=== PATIENT | female | born 1945 | race Two or more races ===

== ENCOUNTER → 2016-11-23 | Outpatient (CLI) | payer OTHER | LOC: FIMAGING 13:45 | PROVIDERS: ATTEND Internal Medicine Geriatric Medicine | DX: Z12.31 Encounter for screening mammogram for malignant neoplasm of breast (principal); Z13.820 Encounter for screening for osteoporosis; M85.80 Other specified disorders of bone density and structure, unspecified site; Z78.0 Asymptomatic menopausal state | CPT/HCPCS: G0202 ==

== ENCOUNTER → 2018-12-03 | Outpatient (CLI) | payer OTHER | LOC: FIMAGING 10:16 | PROVIDERS: ATTEND Internal Medicine Geriatric Medicine | DX: Z12.31 Encounter for screening mammogram for malignant neoplasm of breast (principal); Z13.820 Encounter for screening for osteoporosis; M85.89 Other specified disorders of bone density and structure, multiple sites; Z78.0 Asymptomatic menopausal state ==

== ENCOUNTER → 2018-12-17 | Outpatient (CLI) | payer OTHER | LOC: EMCIMAGING 08:52 | PROVIDERS: ATTEND Internal Medicine Geriatric Medicine | DX: N63.21 Unspecified lump in the left breast, upper outer quadrant (principal) | CPT/HCPCS: 77065-PN ==

== ENCOUNTER → 2018-12-30 | Day surgery (SDC) | payer OTHER ==
[~2018-12-30] MED LIST: BUPIVACAINE 0.5% 30 ML SDV ONE; LIDOCAINE 1% 300 MG/30 ML SDV ONE
== END | disposition home or self-care (01) ==
LOC: FIMAGING 07:33
PROVIDERS: ATTEND Radiology Diagnostic Radiology
PROC: 0HBU3ZX Excision of Left Breast, Percutaneous Approach, Diagnostic (ICD-10-PCS; principal; 2018-12-30)
DX: C50.812 Malignant neoplasm of overlapping sites of left female breast (principal); Z17.0 Estrogen receptor positive status [ER+]

== ENCOUNTER 2019-02-04 06:48 | Day surgery (SDC) | payer OTHER ==
[2019-02-04] MEDS ORDERED: LR 1,000 ML IV ONE (07:15)
[2019-02-04] MEDS ORDERED: ceFAZolin 2 GM/DEXTROSE 100 ML IV ONE (07:15)
[2019-02-04] MEDS ORDERED: LIDOCAINE 1% 300 MG/30 ML SDV ONE ×3 (07:38→10:49)
[2019-02-04] MEDS ORDERED: BUPIVACAINE 0.5% 30 ML SDV ONE ×2 (07:55→10:49)
--- NOTE | 2019-02-04 10:58 | PDHPUP ---
History & Physical Update H&P update statement: This history and physical update is based on an assessment of the patient which was completed after admission or registration (within 24 hours), but prior to the surgery/procedure. H&P update: H&P reviewed & patient examined, no change in patient's condition since H&P completed
[2019-02-04] MEDS ORDERED: MIDAZOLAM 2 MG/2 ML VIAL ONE (11:07)
[2019-02-04] MEDS ORDERED: MIDAZOLAM 2 MG/2 ML VIAL IVP ONE (11:07)
--- NOTE | 2019-02-04 11:07 | PDANEPAE ---
ANE Past Medical History - Cardiovascular History Hx Hypertension: No Hx Arrhythmias: No Hx Chest Pain: No Hx Coronary Artery / Peripheral Vascular Disease: No Hx CHF / Valvular Disease: No Hx Palpitations: No - Pulmonary History Hx COPD: No Hx Asthma/Reactive Airway Disease: No Hx Recent Upper Respiratory Infection: No Hx Oxygen in Use at Home: No Hx Sleep Apnea: No Sleep Apnea Screening Result - Last Documented: Negative Pulmonary History Comment: Albuterol PRN for bronchitis. - Neurologic History Hx Cerebrovascular Accident: No Hx Seizures: No Hx Dementia: No - Endocrine History Hx Diabetes: No Hypothyroid: No Hyperthyroid: No Obesity: no - Renal History Hx Renal Disorders: No - Liver History Hx Hepatic Disorders: No - Neurological & Psychiatric Hx Hx Neurological and Psychiatric Disorders: Yes Neurological / Psychiatric History Comment: Anxiety. - Cancer History Hx Cancer: Yes Cancer History Comment: L breast CA - Congenital Disorder History Hx Congenital Disorders: No - GI History Hx Gastrointestinal Disorders: No - Chronic Pain History Chronic Pain: No - Surgical History Prior Surgeries: L Carpal tunnel release. L Radial tendon release. L Trigger finger release. L Ganglion cyst (wrist) removal ANE Review of Systems Review of Systems: - Exercise capacity METS (RN): 4 METS ANE Patient History - Allergies Allergies/Adverse Reactions: No Known Allergies Allergy (Unverified 03/04/16 13:58) - Home Medications Home Medications: Acetamn/Diphenhydramine 500/25 [Tylenol PM (*)] 1 each PO HS 02/03/19 [Last Taken 02/02/19 21:00] Herbals/Supplements -Info Only 1 ea PO DAILY 02/03/19 [Last Taken 01/30/19] LORazepam [Ativan] 0.5 mg PO BID PRN 02/03/19 [Last Taken 02/04/19 03:00] - NPO status NPO Since - Liquids (Date): 02/04/19 NPO Since - Liquids (Time): 05:30 NPO Since - Solids (Date): 02/03/19 NPO Since - Solids (Time): 20:30 - Smoking Hx Smoking Status: Never smoked - Family Anes Hx Family Hx Anesthesia Complications: Sister had difficulty coming out of anesthesia "for days"; very sleepy. ANE Labs/Vital Signs - Vital Signs Blood Pressure: 143/70 Heart Rate: 73 Respiratory Rate: 18 O2 Sat (%): 92 Height: 157.48 cm Weight: 68.039 kg ANE Physical Exam - Airway Neck exam: decreased ROM Mallampati Score: Class 2 Mouth exam: normal dental/mouth exam - Pulmonary Pulmonary: no respiratory distress - Cardiovascular Cardiovascular: regular rate and rhythym - ASA Status ASA Status: II ANE Anesthesia Plan Anesthesia Plan: GA w LMA, GA with mask, MAC
[2019-02-04] MEDS ORDERED: LIDOCAINE 2% 2 ML INJ ONE (11:24)
[2019-02-04] MEDS ORDERED: fentaNYL 100 MCG/2 ML INJ ONE (11:25)
[2019-02-04] MEDS ORDERED: PROPOFOL/EMULSION 500 MG/50 ML BOTTLE IV ONE (11:25)
[2019-02-04] MEDS ORDERED: NALOXONE HCL 0.4 MG/ML INJ IVP PRN (12:21)
[2019-02-04] MEDS ORDERED: PROMETHAZINE HCL 25 MG/ML INJ IVP PRN (12:21)
[2019-02-04] MEDS ORDERED: ONDANSETRON 4 MG/2 ML VIAL IVP PRN (12:21)
[2019-02-04] MEDS ORDERED: fentaNYL 100 MCG/2 ML INJ IVP PRN (12:21)
[2019-02-04] MEDS ORDERED: LABETALOL HCL 5 MG/ML 20 ML MDV IVP PRN (12:21)
--- NOTE | 2019-02-04 12:28 | POSTOPPROG ---
Post Op Note Date of Operation: 02/04/19 Surgeon: Dianne Jensen Entry Level Administrative Assistant: raya Anesthesiologist: nancy Anesthesia: GET(General Endotracheal) Pre-op Diagnosis: L invasive breast cancer Post-op Diagnosis: same Indication: 73 yo with invasive breast cancer Procedure: L needle loc lump l sln Findings: clip in specimen Inf/Abcess present in the surg proc area at time of surgery?: No EBL: Minimal Specimen(s): lumpectomy, margins, sln
--- NOTE | 2019-02-04 12:54 | GOP ---
[f rep st] OPERATIVE REPORT DATE OF OPERATION: 02/04/2019 SURGEON: Dianne Jensen MD POLICY ADVISOR: Devi Tavarez PA-C ANESTHESIA: General. ANESTHESIOLOGIST: Jaylan Ellis MD PREOPERATIVE DIAGNOSIS: Left breast invasive carcinoma. POSTOPERATIVE DIAGNOSIS: Left breast invasive carcinoma, lower outer. PROCEDURE PERFORMED: Left needle localized lumpectomy, left sentinel lymph node biopsy. FINDINGS: SPECIMENS: Lumpectomy, additional margins, and sentinel lymph node. ESTIMATED BLOOD LOSS: 10 cc. INDICATIONS: The patient is a 73-year-old who was recently diagnosed with breast cancer. DESCRIPTION OF PROCEDURE: Patient was brought into the operating room, placed supine on the table, a nd general anesthesia was administered. Her left breast and axilla were prepped and draped in the [facility] sterile fashion. I infiltrated all sites with 0.5% Marcaine mixed with 1% lidocaine prior to tania ing incision. I made an ellipse around the wire and dissected down beyond the level of the mass. It was marked green anterior, red superior, yellow medial, blue inferior, orange lateral, black posteri or. This was submitted to Radiology. Clip was contained in the specimen. I took an additional supe rior margin inked red, medial margin inked yellow, inferior margin inked blue, lateral margin inked o range, posterior margin inked black. From the same incision, I was able to reach into the axillary s pace. The sentinel lymph node was very small. I was able to identify it. It measured 180 ex vivo a nd the background was quiet. Hemostasis achieved. Clips placed in the lumpectomy cavity. The deep layer closed with 3-0 Vicryl, skin closed with 3-0 Vicryl, followed by 4-0 Monocryl. Mastisol, Steri -Strips, sterile dressing applied. She was awakened in the operating room, extubated, transferred to PACU in stable condition. /[id number]/MODL
[2019-02-04] MEDS ORDERED: HYDROCODONE/APAP 5/325 TAB PO PRN (13:01)
[2019-02-04 13:58] VITALS: BP 142/59
== END 2019-02-04 14:05 | disposition home or self-care (01) ==
LOC: FSGY 06:48
PROVIDERS: ATTEND Surgery
DX: C50.512 Malignant neoplasm of lower-outer quadrant of left female breast (principal); Z17.0 Estrogen receptor positive status [ER+]
CPT/HCPCS: 19301; 38500; 76098; 78195; A9520; J0690; J2250; J2704; J3010